=== PATIENT | male | born 1965 | race African-American/Black ===

== ENCOUNTER 2017-05-19 01:16 | Emergency (ER) | payer SELFPAY ==
[~2017-05-19] VITALS: Ht 182.9 cm; Wt 90.0 kg
[2017-05-19 01:18] VITALS: BP 154/98; PULSE 80; RESP 18; TEMP 98.9; O2SAT 97
[2017-05-19] MEDS ORDERED: IBUP1TAB7 PO (01:52)
--- NOTE | 2017-05-19 01:55 | PD ---
HPI Chief Complaint: Hip Injury Time Seen by Provider: 01:51 Travel History International Travel<30 days: No Contact w/Intl Traveler<30days: No Traveled to known affect area: No History of Present Illness HPI 52-year-old male here with lateral right thigh pain. Symptoms started this morning. The pain is a sharp pain in the lateral right thigh which is worse with movement. He has not tried using any medicine for symptom relief. He works in a warehouse lifting heavy boxes. He denies any specific trauma. Denies any lower back pain, abdominal pain, bowel or bladder incontinence, saddle anesthesia. No other complaints. [facility] Past Medical History Medical History: Denies Significant Hx ?: Not Past Surgical History Surgical History: No Previous Surgery Social History Alcohol Use: Yes Tobacco Use: No Substance Use: No Allergies-Medications (Allergen,Severity, Reaction): Coded Allergies: No Known Allergies (Verified Allergy, Unknown, 05/19/17) Reported Meds & Prescriptions Reported Meds & Active Scripts Active Ibuprofen 800 Mg Tab 800 Mg PO Q6HR PRN Review of Systems General / Constitutional: No: Fever, Chills Musculoskeletal: Positive: Pain, No: Limited ROM Skin: No Rash Neurologic: Positive: Other (denies weakness) Physical Exam Narrative GENERAL: On or she male in no acute distress SKIN: Warm and dry. CARDIOVASCULAR: Regular rate and rhythm. No murmur appreciated. RESPIRATORY: No accessory muscle use. Clear to auscultation. Breath sounds equal bilaterally. GASTROINTESTINAL: Abdomen soft, non-tender, nondistended. Hepatic and splenic margins not palpable. MUSCULOSKELETAL: No obvious deformities. Point tenderness to palpation to lateral proximal right thigh musculature. No bruising or soft tissue swelling, full range of motion preserved lower extremities. NEUROLOGICAL: Awake and alert. No obvious cranial nerve deficits. Motor grossly within normal limits. Normal speech. Data Data Last Documented VS Vital Signs Date Time Temp Pulse Resp B/P (MAP) Pulse Ox O2 Delivery O2 Flow Rate FiO2 05/19/17 01:52 05/19/17 01:18 98.9 80 18 97 Room Air Orders Orders Ketorolac Inj (Toradol Inj) (05/19/17 02:00) Ed Discharge Order (05/19/17 01:53) [facility] Medical Decision Making Medical Screen Exam Complete: Yes Emergency Medical Condition: Yes Medical Record Reviewed: Yes Differential Diagnosis Right thigh strain, radiculopathy, iliotibial band syndrome Narrative Course The patient appears to have a strain to his right thigh. He will be discharged with a short course of NSAIDs. Diagnosis Primary Impression: Strain of right hip and thigh Additional Instructions: Medicine as needed. Take with meals. Avoid strenuous activity, heavy lifting, follow-up with primary care in 2 weeks and return for any emergent medical conditions. Med/Other Pt SpecificInfo: Prescription(s) given Scripts Ibuprofen (Ibuprofen) 800 Mg Tab 800 MG PO Q6HR Y for PAIN, #40 TAB 0 Refills Prov: Irais Coffman MD 05/19/17 Disposition: 01 DISCHARGE HOME Condition: Stable Cuauhtemoc Martínez May 19, 2017 01:55
[2017-05-19] MEDS ORDERED: KETOROLAC TROMETHAMINE 60 MG/2 ML (IM) VIAL IM ONE (02:00)
[2017-05-20] MEDS ORDERED: ROBA500T PO (15:07)
== END 2017-05-19 02:22 | disposition home or self-care (01) ==
LOC: NEPD 01:16
DX: S76.011A Strain of muscle, fascia and tendon of right hip, initial encounter (principal); S76.911A Strain of unspecified muscles, fascia and tendons at thigh level, right thigh, initial encounter; X50.0XXA Overexertion from strenuous movement or load, initial encounter; Y92.59 Other trade areas as the place of occurrence of the external cause; Y99.0 Civilian activity done for income or pay
CPT/HCPCS: 96372; 99284; J1885

== ENCOUNTER 2017-05-20 14:28 | Emergency (ER) | payer SELFPAY ==
[~2017-05-20 14:28] MED LIST: IBUP1TAB7 PO
[2017-05-20 14:30] VITALS: BP 131/90; PULSE 69; RESP 18; TEMP 98.5; O2SAT 100
[2017-05-20] MEDS ORDERED: ORPHENADRINE INJ 60 MG/2 ML AMP IM ONE (15:00)
[2017-05-20] MEDS ORDERED: KETOROLAC TROMETHAMINE 60 MG/2 ML (IM) VIAL IM ONE (15:00)
[2017-05-20] MEDS ORDERED: ROBA500T PO (15:07)
--- NOTE | 2017-05-20 15:07 | PD ---
HPI . Sciatica Chief Complaint: Pain: Acute or Chronic Time Seen by Provider: 14:35 Travel History International Travel<30 days: No Contact w/Intl Traveler<30days: No Traveled to known affect area: No History of Present Illness HPI 52-year-old male patient presents emergency department for evaluation of pain that originates in the lateral aspect of the right thigh/hip and radiates down the right leg and a sharp shooting manner. Patient denies any traumas, injuries or falls. Patient denies any IV drug use, bowel or bladder incontinence, saddle numbness. Patient denies any fever, chills, malaise. Patient was seen at our facility yesterday for the same complaint and given a injection of Toradol and a prescription for ibuprofen. Patient denies any major medical history and doesn't take any other medication outside the prescription for ibuprofen that he was given yesterday. [facility], [facility] Social History Alcohol Use: Yes Tobacco Use: No Substance Use: No Allergies-Medications (Allergen,Severity, Reaction): Coded Allergies: No Known Allergies (Verified Allergy, Unknown, 05/20/17) Reported Meds & Prescriptions Reported Meds & Active Scripts Active Robaxin (Methocarbamol) 500 Mg Tab 500 Mg PO TID 5 Days Ibuprofen 800 Mg Tab 800 Mg PO Q6HR PRN Review of Systems Except as stated in HPI: all other systems reviewed are Neg Physical Exam Narrative GENERAL: Well-nourished, well-developed 52-year-old male patient in no acute distress. Nontoxic appearing. SKIN: Focused skin assessment warm/dry. HEAD: Normocephalic. Atraumatic. EYES: No scleral icterus. No injection or drainage. NECK: Supple, trachea midline. No JVD or lymphadenopathy. CARDIOVASCULAR: Regular rate and rhythm without murmurs, gallops, or rubs. Pedal pulses +2 bilaterally. RESPIRATORY: Breath sounds equal bilaterally. No accessory muscle use. GASTROINTESTINAL: Abdomen soft, non-tender, nondistended. MUSCULOSKELETAL: Right lateral hip/thigh pain radiating down the posterior aspect of the right leg and a sharpshooting manner. No obvious deformity, ecchymosis, erythema, cyanosis, edema. BACK: Nontender without obvious deformity. No CVA tenderness. Data Data Last Documented VS Vital Signs Date Time Temp Pulse Resp B/P (MAP) Pulse Ox O2 Delivery O2 Flow Rate FiO2 05/20/17 15:32 05/20/17 14:30 98.5 69 18 100 Orders Orders Orphenadrine Inj (Norflex Inj) (05/20/17 15:00) Ketorolac Inj (Toradol Inj) (05/20/17 15:00) Ed Discharge Order (05/20/17 15:07) [facility] Medical Decision Making Medical Screen Exam Complete: Yes Emergency Medical Condition: Yes Differential Diagnosis Differential diagnoses include but not limited to sciatica, radiculopathy, strain, sprain Narrative Course 52-year-old male patient presents emergency department for evaluation of pain that radiates in the lateral aspect of the right hip/thigh and radiates down the leg. He should denies any falls, traumas, injuries to the area. There is no obvious deformity, ecchymosis, erythema, cyanosis. Physical exam is consistent with sciatic pain. Due to the fact that there is no trauma or injury , imaging is not clinically indicated at this time. Patient was evaluated for the same complaint at our facility yesterday and given a prescription for ibuprofen. Today he will be given an IM injection of Toradol and Norflex and Robaxin prescription to accompany the ibuprofen prescription that he already has. Patient is discharged home with instructions for supportive care, to follow-up with his primary care return to the emergency Department with any worsening condition. Diagnosis Primary Impression: Sciatica Qualified Codes: M54.31 - Sciatica, right side Referrals: Primary Care Physician Patient Instructions: General Instructions, Sciatica (ED) Additional Instructions: Please return to emergency department if your symptoms return or worsen. Follow up with your primary care provider. Take medications as prescribed. May use ice packs or heating pads to area for pain management. Med/Other Pt SpecificInfo: Prescription(s) given Scripts Methocarbamol (Robaxin) 500 Mg Tab 500 MG PO TID for Muscle Spasm for 5 Days, TAB 0 Refills Prov: Lia Conn 05/20/17 Disposition: 01 DISCHARGE HOME Condition: Stable Lia Conn May 20, 2017 15:07
== END 2017-05-20 15:33 | disposition home or self-care (01) ==
LOC: NEPK 14:28
DX: M54.31 Sciatica, right side (principal)
CPT/HCPCS: 99283; J1885; J2360